=== PATIENT | male | born 1955 | race Caucasian/White ===

== ENCOUNTER 2022-03-20 09:21 | Outpatient (CLI) | payer OTHER, MEDICAID | END 2022-03-20 20:57 | disposition home or self-care (01) | LOC: SNM 09:21 | PROVIDERS: ATTEND Internal Medicine Gastroenterology | DX: K70.30 Alcoholic cirrhosis of liver without ascites (principal); K31.84 Gastroparesis; I85.00 Esophageal varices without bleeding; Z86.010 Personal history of colon polyps | CPT/HCPCS: 78264; 76700; A9541 ==